=== PATIENT | female | born 1960 | race Asian ===

== ENCOUNTER 2017-07-20 14:12 | Outpatient (CLI) | payer OTHER ==
--- NOTE | 2017-07-20 18:19 | Mammography Report ---
DIGITAL DIAGNOSTIC BILATERAL MAMMOGRAM: 07/20/2017 CLINICAL INDICATION: Lateral left breast pain. COMPARISON: 05/08/2016, 04/27/2015, 04/14/2014, 04/15/2013, 09/02/2012, 2011, 04/22/2012, 04/03/2011, 02/28/2011, 03/12/2010. TECHNIQUE: Bilateral CC, laterally exaggerated CC, MLO views, left true lateral view. The patient described the pain as diffuse throughout the lateral half of the left breast, so no markers were placed. FINDINGS: The breasts again demonstrate heterogeneously dense fibroglandular parenchyma bilaterally. Coarse and punctate, typically benign calcifications are present. Biopsy markers are stable bilaterally. No suspicious masses, clustered microcalcifications, or regions of architectural distortion are identified. Specifically, no mammographic abnormality is appreciated in the outer left breast, in the region of pain described by the patient. IMPRESSION: BENIGN FINDINGS. RECOMMENDATION: Routine annual screening unless otherwise clinically indicated. BIRADS CATEGORY 2 - BENIGN FINDINGS. STANDARD QUALIFYING STATEMENTS 1. This examination was reviewed with the aid of Computed Aided Detection (CAD). 2. A negative x-ray report should not delay biopsy if a dominant or clinically suspicious mass is present. More than 5% of cancers are not identified by x-ray. 3. Dense breasts may obscure an underlying neoplasm. TD: 07/20/2017 19:18 LATOSHA
== END 2017-07-20 14:13 | disposition home or self-care (01) ==
LOC: DI 14:12
PROVIDERS: ATTEND Physician Assistant Medical
DX: N64.4 Mastodynia (principal)
CPT/HCPCS: 77066

== ENCOUNTER 2018-04-23 09:00 | Outpatient (CLI) | payer OTHER ==
[2018-04-23] MEDS ORDERED: GADOBUTROL 7.5 MMOL/7.5 ML VIAL ONE (09:42)
[2018-04-23 09:47] LABS: CALCIUM 9.3 mg/dL (8.5-10.3); CREATININE 0.6 mg/dL (0.4-1.0)
[2018-04-23] MEDS ORDERED: GADOBUTROL 7.5 MMOL/7.5 ML VIAL IVP ONE ×2 (11:19)
--- NOTE | 2018-04-23 12:22 | MRI Report ---
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 Please assess in follow-up. TECHNIQUE: 1. T1 sagittal and coronal fat saturated T2 2. Axial T1 MP RAGE, FLAIR, T2* and DWI. 3. Thin slice, T1 and T2 coronal (sella). 4. 6.5 cc of IV Gadavist. Dynamic pituitary imaging was performed in the coronal plane. In addition, thin slice, static, postcontrast, T1 sagittal and coronal sequences were obtained through the sella. A routine T1 MP RAGE axial sequence was performed through the brain. COMPARISON: 03/01/2016. FINDINGS: Pituitary/sella: The sella is not abnormally enlarged. There is a normal T1 hyperintense neurohypophysis in the posterior aspect of the sella. The pituitary gland has a normal size and configuration. It measures up to about 5.75 mm in maximal craniocaudad dimension, essentially unchanged. Again demonstrated is a well-defined, ovoid, T2 hyperintense focus in the posterior aspect of the adenohypophysis, centrally and paracentrally to the right. On the T2 coronal sequence from today's examination, this lesion appears to measure about 4.5 mm maximal transverse by about 2.5 mm maximal cc, compared to about 5 x 3 mm on the previous examination. There is no enhancement on early phases of dynamic sequence. However, the central area of nonenhancement appears smaller on the static postcontrast sequences suggesting that there probably is mild peripheral-type enhancement. On the postcontrast static T1 coronal sequence, the area of nonenhancement measures about 3 mm maximal transverse by about 1.8 mm maximal craniocaudad. This is unchanged when compared to the previous study 03/01/2016. There is minimal upward convexity of the contour of the pituitary at the level of the small cystic-appearing lesion. The infundibulum actually appears displaced slightly to the right, unchanged. No suprasellar mass is demonstrated. The optic chiasm remains normal and noncompressed. The cavernous sinuses and other parasellar structures appear normal. 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 There is magnetic susceptibility artifact in the cerebellar vermis from craniectomy, unchanged. Imaging of the posterior fossa is otherwise unremarkable. The fourth ventricle remains normal in size. The third and lateral ventricles are normal in size. A few minor T2 hyperintensities are again demonstrated in the frontal white matter. Signal intensity of cortex and white matter is otherwise unremarkable. There appear to be flow voids for the main intracranial arteries. No abnormal diffusion restriction is demonstrated. No evidence of acute or chronic hemorrhage on T2* GRE sequence. No enhancing intracranial space-occupying mass lesion is demonstrated. No pathologic meningeal or cranial nerve enhancement is identified. There appears to be normal intravascular contrast enhancement in the dural venous sinuses and deep venous structures. Very limited evaluation of the orbits reveals no gross pathology. There is mild mucosal thickening scattered throughout the ethmoid air cells. The paranasal sinuses are otherwise clear. No mastoid or middle ear effusion. IMPRESSION: 1. Again demonstrated is a small T2 hyperintense minimally enhancing lesion in the posterior aspect of the adenohypophysis, unchanged. No interval growth when compared to previous examination of 03/01/2016. Differential diagnostic considerations are predominantly between benign intrapituitary cyst and a cystic microadenoma. 2. Imaging of the parasellar region is otherwise unremarkable. In particular, no suprasellar mass is demonstrated. The optic chiasm is normal and noncompressed. 3. Postsurgical changes are again demonstrated in the posterior fossa, stable. 4. A very mild amount of white matter disease is again identified in the supratentorial brain, similar to previous study February 2016. 5. No new intracranial pathology is identified.
--- NOTE | 2018-04-23 14:10 | MRI Report ---
Reason: PITUITARY CYST Procedure Date: 04/23/2018 Accession Number: [id number] / [id number] Procedure: MRI - Angio Brain W/O (MRA) CPT Code: FULL RESULT: EXAM MRA BRAIN EXAM DATE: 04/23/2018 10:01 AM. CLINICAL HISTORY: PITUITARY CYST. COMPARISON: Accompanying MRI brain, prior MR angiogram brain 03/01/2016. TECHNIQUE: Multiplanar, multisequence MRA sequences of the brain were performed. Other: None. Post-processing: Multiplanar 3D MIP reconstructions. IV Contrast: None. Findings: Relevant images are indicated (image number, series number). Left ICA: Widely patent including MCA, TERRA. Right ICA: Widely patent including MCA, TERRA. Posterior circulation: Widely patent, origin right MANAGER EQUIPMENT. Small left PCOM. Impressions: 1. Patent major arteries of the brain, with normal anatomical variability as described. No aneurysm, dissection, stenosis, AVM. RADIA
== END 2018-04-23 09:01 | disposition home or self-care (01) ==
LOC: LAB 09:00 → DI 09:01
PROVIDERS: ATTEND Physician Assistant Medical
DX: E23.6 Other disorders of pituitary gland (principal); I10 Essential (primary) hypertension; R90.82 White matter disease, unspecified
CPT/HCPCS: 36415; 70544; 70553; 80048; A9585

== ENCOUNTER 2018-05-18 07:41 | Outpatient (CLI) | payer OTHER ==
[2018-05-18 14:28] LABS: BASOPHILS # (AUTO) 0.1 10^3/uL (0.0-0.1); BASOPHILS % (AUTO) 0.9 %; EOSINOPHILS # (AUTO) 0.1 10^3/uL (0.0-0.7); EOSINOPHILS % (AUTO) 1.7 %; HGB - HEMOGLOBIN 13.8 g/dL (12.0-16.0); LYMPHOCYTES # (AUTO) 2.3 10^3/uL (1.5-3.5); LYMPHOCYTES % (AUTO) 38.1 %; MEAN CORPUSCULAR VOLUME 91.2 fL (81.0-99.0); MEAN PLATELET VOLUME 8.4 fL (7.9-10.8); MONOCYTES # (AUTO) 0.4 10^3/uL (0.0-1.0); MONOCYTES % (AUTO) 6.3 %; NEUTROPHILS # (AUTO) 3.1 10^3/uL (1.5-6.6); PLT - PLATELET COUNT 261 10^3/uL (130-450); RED BLOOD COUNT 4.46 10^6/uL (4.20-5.40); RED CELL DISTRIBUTION WIDTH 13.1 % (12.0-15.0); WHITE BLOOD COUNT 5.9 x10^3/uL (4.8-10.8)
[2018-05-18 15:06] LABS: ALBUMIN 4.3 g/dL (3.2-5.5); ALBUMIN/GLOBULIN RATIO 1.5 (1.0-2.2); ALKALINE PHOSPHATASE 91 IU/L (42-121); ALT ALANINE AMINOTRANSFERASE 39 IU/L (10-60); AST ASPARTATE AMINOTRANSFERASE 26 IU/L (10-42); BILIRUBIN,TOTAL 0.8 mg/dL (0.2-1.0); BUN - BLOOD UREA NITROGEN 10 mg/dL (6-20); CALCIUM 9.2 mg/dL (8.5-10.3); CARBON DIOXIDE - CO2 28 mmol/L (21-32); CHLORIDE 104 mmol/L (101-111); CHOL/HDL RATIO 2.3 (<4.4); CHOLESTEROL 211 mg/dL; CREATININE 0.6 mg/dL (0.4-1.0); GFR - MDRD 103 (>89); GLUCOSE 84 mg/dL (70-100); HDL CHOLESTEROL 93 mg/dL; LDL CHOLESTEROL,CALCULATED 109 mg/dL; LDL/HDL RATIO 1.2 (<4.4); SODIUM 137 mmol/L (135-145); TOTAL PROTEIN 7.2 g/dL (6.7-8.2); VLDL CHOLESTEROL 9 mg/dL
== END 2018-05-18 07:42 | disposition home or self-care (01) ==
LOC: LAB.WCP 07:41
PROVIDERS: ATTEND Physician Assistant Medical
DX: Z00.00 Encounter for general adult medical examination without abnormal findings (principal)
CPT/HCPCS: 36415; 80053; 80061; 83721; 84443; 85025

== ENCOUNTER 2018-07-19 12:35 | Outpatient (CLI) | payer OTHER ==
--- NOTE | 2018-07-19 15:21 | Mammography Report ---
Reason: BREAST PAIN, LEFT Procedure Date: 07/19/2018 Accession Number: [id number] / [id number] Procedure: SUSIE - Diagnostic Dig Bilat CPT Code: FULL RESULT: EXAM: Diagnostic Dig Bilat DATE: 07/19/2018 1:23 PM CLINICAL HISTORY: Left breast pain with palpable abnormality. Diagnostic mammogram. TECHNIQUE: Bilateral CC and MLO views were obtained with left spot CC and spot MLO views also obtained with magnification. COMPARISON: 07/20/2017 through 04/14/2014. FINDINGS: The breasts demonstrate scattered fibroglandular densities bilaterally. Biopsy markers are identified in both breasts, stable. There are coarse typically benign calcifications. There is no mammographic finding that corresponds to the palpable marker placed on the left breast. Focused left breast ultrasound of the region of interest demonstrates normal breast tissue. No suspicious masses, architectural distortion or calcifications are identified in either breast. IMPRESSION: Benign findings RECOMMENDATION: Recommend routine annual Screening mammography unless otherwise clinically indicated. BIRADS CATEGORY 2: Benign findings STANDARD QUALIFYING STATEMENTS: 1. This examination was not reviewed with the aid of Computer-Aided Detection (CAD). 2. A negative or benign imaging report should not delay biopsy if clinically suspicious findings are present. Consider surgical consultation if warrented. More than 5% of cancers are not identified by imaging. 3. Dense breasts may obscure an underlying neoplasm. 4. This examination was reviewed with the aid of 3D imaging (tomography).
== END 2018-07-19 12:36 | disposition home or self-care (01) ==
LOC: DI 12:35
PROVIDERS: ATTEND Physician Assistant
DX: N64.4 Mastodynia (principal)
CPT/HCPCS: 76642; 77066

== ENCOUNTER 2018-08-17 09:44 | Outpatient (CLI) | payer OTHER ==
--- NOTE | 2018-08-17 15:11 | XRAY Report ---
Reason: PRODUCTIVE COUGH PURULRNT SPUTUM Procedure Date: 08/17/2018 Accession Number: [id number] / [id number] Procedure: WCP - Chest 2 View X-Ray CPT Code: 29838 FULL RESULT: EXAM: CHEST RADIOGRAPHY EXAM DATE: 08/17/2018 10:14 AM. CLINICAL HISTORY: Cough. COMPARISON: None. TECHNIQUE: 2 views. FINDINGS: Lungs/Pleura: No focal opacities evident. No pleural effusion. No pneumothorax. Normal volumes. Mediastinum: Heart and mediastinal contours are unremarkable. Other: None. IMPRESSION: No acute intrathoracic plain film abnormality. RADIA
== END 2018-08-17 09:45 | disposition home or self-care (01) ==
LOC: DI.WCP 09:44
PROVIDERS: ATTEND Physician Assistant
DX: R05 Cough (principal)
CPT/HCPCS: 71046

== ENCOUNTER 2018-12-24 12:32 | Emergency (ER) | payer OTHER ==
--- NOTE | 2018-12-24 14:15 | ED Physician Documentation ---
PD HPI HEADACHE - Stated complaint Stated Complaint: HEADACHE/HIGH BP - Chief complaint Chief Complaint: Neuro - History obtained from History obtained from: Patient - History of Present Illness Timing - onset: Other (Coming and going MENDES x2 weeks. Had Aneurysm with clip 2016. BP has been high and BP meds were increased (verapamil was doubled). C/O L hand tingling 3rd-5th digits. Currently no headache.) Review of Systems Ten Systems: 10 systems reviewed and negative Constitutional: denies: Fever, Chills Ears: denies: Loss of hearing, Ear pain Nose: denies: Rhinorrhea / runny nose, Congestion Throat: denies: Sore throat Cardiac: denies: Chest pain / pressure, Palpitations Respiratory: denies: Dyspnea, Cough PD PAST MEDICAL HISTORY - Past Medical History Cardiovascular: Hypertension Respiratory: Asthma GI: None WATER TENDER: None : None HEENT: None, Glaucoma Psych: None Musculoskeletal: None Derm: None - Past Surgical History Past Surgical History: Yes - Present Medications Home Medications: Ambulatory Orders Medication Instructions Recorded Confirmed Verapamil [Calan] 90 mg PO DAILY 02/12/13 02/12/13 RX: Hydrochlorothiazide 12.5 mg PO DAILY #30 tablet 12/24/18 - Allergies Allergies/Adverse Reactions: Allergies Allergy/AdvReac Type Severity Reaction Status Date / Time No Known Drug Allergies Allergy Verified 02/12/13 19:31 - Social History Does the pt smoke?: No Smoking Status: Never smoker Does the pt drink ETOH?: No - Family History Family history: reports: Non contributory - Immunizations Immunizations are current?: Yes - POLST Patient has POLST: No POLST Status: Full Code PD ED PE NORMAL - Vitals Vital signs reviewed: Yes - General General: Alert and oriented X 3, No acute distress - HEENT HEENT: PERRL, EOMI, Pharynx benign - Neck Neck: Supple, no meningeal sign, No bony TTP - Cardiac Cardiac: RRR, No murmur - Respiratory Respiratory: No respiratory distress, Clear bilaterally - Abdomen Abdomen: Non tender - Back Back: No CVA TTP, No spinal TTP - Derm Derm: Normal color, Warm and dry - Extremities Extremities: No deformity, No tenderness to palpate, Normal ROM s pain, No edema, No calf tenderness / cord - Neuro Neuro: Alert and oriented X 3, 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, No motor deficit, No sensory deficit, Normal speech Eye Opening: Spontaneous Motor: Obeys Commands Verbal: Oriented GCS Score: 15 - Psych Psych: Normal mood, Normal affect Results - Vitals Vitals: Vital Signs - 24 hr 12/24/18 12/24/18 12/24/18 12:49 12:54 15:25 Temperature 36.6 C Heart Rate 64 60 66 Respiratory 16 18 15 Rate Blood Pressure 171/73 H 153/77 H 153/66 H O2 Saturation 99 99 100 12/24/18 17:13 Temperature 36.6 C Heart Rate 67 Respiratory 17 Rate Blood Pressure 156/66 H O2 Saturation 99 Oxygen O2 Source Room air - Labs Labs: Laboratory Tests 12/24/18 14:59 Sodium 140 Potassium 3.7 Chloride 104 Carbon Dioxide 27 Anion Gap 9.0 BUN 12 Creatinine 0.7 Estimated GFR (MDRD) 86 L Glucose 84 Calcium 9.2 - Rads (name of study) CTA head Radiology: EMP read contemporaneously (nad) PD MEDICAL DECISION MAKING - ED course ED course: 58-year-old woman with uncontrolled hypertension and history of aneurysm with on and off headaches although no headaches now and declines medication for the headaches. She is mostly worried about the recurrence of an aneurysm which Is ruled out on CT angiography. We will start a low-dose of hydrochlorothiazide pending follow-up. Departure - Departure Disposition: 01 Home, Self Care Clinical Impression: Headache, Hypertension Condition: Good Record reviewed to determine appropriate education?: Yes Health Concerns: Headache with history of aneurysm repair, Plan of Treatment: CTA was done with no evidence of abnormality or recurrent aneurysm. Care Goals: Decreased blood pressure and headache, aneurysm now ruled out. Assessment: as above Instructions: ED Cephalgia Unspecified Prescriptions: RX: Hydrochlorothiazide 12.5 mg PO DAILY #30 tablet Comments: Call your doctor to arrange a follow-up appointment, make the next available appointment. In the interim, return anytime if worse or if new symptoms develop. Discharge Date/Time: 12/24/18 17:14
[2018-12-24] MEDS ORDERED: IOVERSOL 320 100 ML VIAL IVP ONE ×2 (14:33→15:45)
[2018-12-24 15:28] LABS: CALCIUM 9.2 mg/dL (8.5-10.3); CREATININE 0.7 mg/dL (0.4-1.0)
--- NOTE | 2018-12-24 16:14 | CT Report ---
Reason: Headache, known H/O clipped aneurysms Procedure Date: 12/24/2018 Accession Number: [id number] / [id number] Procedure: CT - ANGIO HEAD W CPT Code: FULL RESULT: EXAM: CT ANGIOGRAM HEAD. CT SCAN OF THE HEAD WITHOUT AND WITH CONTRAST. EXAM DATE: 12/24/2018 03:43 PM CLINICAL HISTORY: Headache, known history of clipped aneurysms. COMPARISON: BRAIN ANGIO W/O 04/23/2018 10:01 AM. BRAIN W/WO 04/23/2018 9:39 AM. HEAD ANGIO 02/10/2013 5:30 PM. TECHNIQUE: - CT Scan Head: Using a multidetector scanner, axial images were acquired from the foramen magnum to the skull vertex prior to and following contrast administration. - CT Angiogram: Using a multidetector scanner, high-resolution axial images were acquired from the skull base through vertex following rapid infusion of intravenous contrast. Reformats: Multiplanar MIP reformats were reconstructed. Nascet criteria used for stenosis measurement. IV Contrast: 80 cc Optiray 320. In accordance with CT protocol optimization, one or more of the following dose reduction techniques were utilized for this exam: automated exposure control, adjustment of mA and/or KV based on patient size, or use of iterative reconstructive technique. FINDINGS: NON-CONTRAST HEAD: Parenchyma: No intraparenchymal hemorrhage. No evidence of mass, midline shift, or CT findings of infarction. Ritchie-white differentiation is distinct. Postoperative change from midline suboccipital craniotomy is noted. Extraaxial Spaces: Normal for age. No subdural or epidural collections identified. Ventricles: Normal in size and position. Sinuses and orbits: Imaged paranasal sinuses, orbits, and mastoids show no significant abnormality. Note is made of bilateral lens removal. Bones: No evidence of fracture or calvarial defect. Other: None. POST-CONTRAST HEAD: No abnormal enhancement. CT ANGIOGRAM HEAD: RIGHT: Internal Carotid artery: No evidence of dissection. No evidence of aneurysm along the intracranial ICA. Anterior Cerebral Artery: Patent without significant stenosis, aneurysm, or vascular malformation. Middle Cerebral Artery: Patent without significant stenosis, aneurysm, or vascular malformation. Posterior Cerebral Artery: Patent without significant stenosis, aneurysm, or vascular malformation. origin is noted as continuation of the P-comm. The P1 segment off the basilar tip is not visualized and presumed aplastic. Posterior Communicating Artery: Patent. No aneurysm. Vertebral Artery: Patent without significant stenosis. No evidence of dissection. Small caliber right PICA is seen arising from the proximal V4 segment. The origin is not well identified. LEFT: Internal Carotid artery: No evidence of dissection. No evidence of aneurysm along the intracranial ICA. Anterior Cerebral Artery: Patent without significant stenosis, aneurysm, or vascular malformation. Middle Cerebral Artery: Patent without significant stenosis, aneurysm, or vascular malformation. Posterior Cerebral Artery: Patent without significant stenosis, aneurysm, or vascular malformation. Posterior Communicating Artery: Patent. No aneurysm. Vertebral Artery: Patent without significant stenosis. No evidence of dissection. The left PICA is dominant arising from the proximal V4 segment. CENTRAL: Anterior Communicating Artery: Patent. No aneurysm. Basilar Artery: Patent without significant stenosis. No aneurysm. Bilateral AICA are noted, with the right side dominant. Bilateral superior cerebellar arteries are patent and unremarkable. The basilar artery terminates as the left DIAGNOSTIC TECHNOLOGIST. DURAL VENOUS SINUSES AND MAJOR CENTRAL VEINS: Patent. The right transverse sinus and jugular bulb are dominant. IMPRESSION: CT Head: 1. No acute intracranial abnormality. Specifically, no evidence of acute infarct, hemorrhage, or mass lesion. No abnormal enhancement. 2. Postoperative change from midline suboccipital craniotomy once again noted. CTA Head: 1. Normal CTA of the head. No significant vascular stenosis, dissection, or aneurysm. 2. Note is made of origin of the right DIAGNOSTIC TECHNOLOGIST as continuation of the P-comm. 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 RADIA
[2018-12-24 17:15] VITALS: BP 156/66
== END 2018-12-24 17:14 | disposition home or self-care (01) ==
LOC: ED 12:32
DX: I10 Essential (primary) hypertension (principal); R51 Headache; Z86.79 Personal history of other diseases of the circulatory system
CPT/HCPCS: 36415; 70496; 80048; 99283; 99284; Q9967

== ENCOUNTER 2019-06-03 08:15 | Outpatient (CLI) | payer OTHER ==
[2019-06-03 12:12] LABS: BASOPHILS # (AUTO) 0.1 10^3/uL (0.0-0.1); BASOPHILS % (AUTO) 1.4 %; EOSINOPHILS # (AUTO) 0.1 10^3/uL (0.0-0.7); EOSINOPHILS % (AUTO) 1.2 %; HGB - HEMOGLOBIN 13.9 g/dL (12.0-16.0); LYMPHOCYTES # (AUTO) 2.5 10^3/uL (1.5-3.5); MEAN CORPUSCULAR HEMOGLOBIN 30.5 pg (27.0-31.0); MEAN CORPUSCULAR VOLUME 92.5 fL (81.0-99.0); MONOCYTES # (AUTO) 0.5 10^3/uL (0.0-1.0); NEUTROPHILS # (AUTO) 2.5 10^3/uL (1.5-6.6); NEUTROPHILS % (AUTO) 45.2 %; PLT - PLATELET COUNT 258 10^3/uL (130-450); RED BLOOD COUNT 4.55 10^6/uL (4.20-5.40); RED CELL DISTRIBUTION WIDTH 13.1 % (12.0-15.0); WHITE BLOOD COUNT 5.6 x10^3/uL (4.8-10.8)
[2019-06-03 16:01] LABS: ALBUMIN 4.1 g/dL (3.2-5.5); ALBUMIN/GLOBULIN RATIO 1.4 (1.0-2.2); ALKALINE PHOSPHATASE 62 IU/L (42-121); ALT ALANINE AMINOTRANSFERASE 19 IU/L (10-60); AST ASPARTATE AMINOTRANSFERASE 24 IU/L (10-42); BILIRUBIN,TOTAL 0.7 mg/dL (0.2-1.0); BUN - BLOOD UREA NITROGEN 16 mg/dL (6-20); CALCIUM 9.7 mg/dL (8.5-10.3); CARBON DIOXIDE - CO2 30 mmol/L (21-32); CHLORIDE 99 mmol/L (101-111); CHOL/HDL RATIO 2.2 (<4.4); CHOLESTEROL 213 mg/dL; CREATININE 0.7 mg/dL (0.4-1.0); GFR - MDRD 86 (>89); GLUCOSE 90 mg/dL (70-100); HDL CHOLESTEROL 95 mg/dL; LDL CHOLESTEROL,CALCULATED 101 mg/dL; LDL/HDL RATIO 1.1 (<4.4); SODIUM 138 mmol/L (135-145); TOTAL PROTEIN 7.1 g/dL (6.7-8.2); VLDL CHOLESTEROL 17 mg/dL
== END 2019-06-03 23:59 | disposition home or self-care (01) ==
LOC: LAB.WCP 08:15
PROVIDERS: ATTEND Physician Assistant Medical
DX: Z00.00 Encounter for general adult medical examination without abnormal findings (principal)
CPT/HCPCS: 36415; 80053; 80061; 83721; 84443; 85025

== ENCOUNTER 2019-07-29 14:59 | Outpatient (CLI) | payer OTHER ==
--- NOTE | 2019-08-01 12:52 | Mammography Report ---
Reason: ROUTINE MAMMO Procedure Date: 07/29/2019 Accession Number: [id number] / [id number] Procedure: SUSIE - Screening Mammo w/Doc CPT Code: Final Report FULL RESULT: EXAM: Screening Mammo w/Doc DATE: 07/29/2019 3:31 PM CLINICAL HISTORY: Routine screening TECHNIQUE: (B) - Bilateral CC and MLO views were obtained. COMPARISON: 07/19/2018, 07/20/2017, 05/08/2016, 04/27/2015, 04/14/2014, 04/15/2013, 09/24/2012 and 09/02/2012 PARENCHYMAL PATTERN: (D) - The breasts demonstrate heterogeneously dense fibroglandular parenchyma bilaterally. FINDINGS: No significant interval change right breast. There are no suspicious masses, calcifications, or areas of distortion. There is a 7 mm nodule in the 10:00 position left breast 5 to 6 cm from the nipple which may have been obscured by dense breasts tissue on prior mammograms. Suggest further evaluation by left breast ultrasound. No suspicious calcifications or areas of distortion left breast. IMPRESSION: Incomplete examination. BI-RADS category 0. Needs left breast ultrasound. Negative right breast. RECOMMENDATION: (ADDUS) - Targeted ultrasound recommended. Left breast BI-RADS CATEGORY: (0) - Incomplete Examination - need additional evaluation. STANDARD QUALIFYING STATEMENTS: 1. This examination was not reviewed with the aid of Computer-Aided Detection (CAD). 2. A negative or benign imaging report should not preclude biopsy if clinically suspicious findings are present. 3. Dense breasts may obscure an underlying neoplasm. 4. This examination was reviewed with the aid of 3D breast imaging (tomosynthesis).
== END 2019-07-29 15:00 | disposition home or self-care (01) ==
LOC: DI 14:59
DX: Z12.31 Encounter for screening mammogram for malignant neoplasm of breast (principal)
CPT/HCPCS: 77063; 77067

== ENCOUNTER 2019-08-16 08:07 | Outpatient (CLI) | payer OTHER ==
--- NOTE | 2019-08-16 16:40 | Ultrasound Report ---
Reason: ABNORMAL MAMMOGRAM Procedure Date: 08/16/2019 Accession Number: [id number] / [id number] Procedure: US - Breast Unilateral Limited CPT Code: Final Report FULL RESULT: EXAM: Breast Unilateral Limited DATE: 08/16/2019 8:45 AM CLINICAL HISTORY: ABNORMAL MAMMOGRAM COMPARISON: Diagnostic mammogram and ultrasound of the left breast 07/19/2018. Screening mammogram 07/29/2019. TECHNIQUE: Targeted ultrasound was performed of the left breast in the area of clinical concern at 11 o'clock and 4 cm distance from the nipple. Color Doppler was employed as appropriate. FINDINGS: At the 11:00 position 4 cm from the nipple is a wider than tall relatively well-circumscribed hypoechoic nodule which measures 0.6 x 0.3 x 0.7 cm and does not demonstrate vascularity by limited color Doppler. There is suggestion of increased through transmission suggestive of a cyst, typically benign sonographic features. IMPRESSION: Benign findings RECOMMENDATION: Recommend routine annual Screening mammography unless otherwise clinically indicated. BIRADS CATEGORY 2: Benign findings RADIA
== END 2019-08-16 08:08 | disposition home or self-care (01) ==
LOC: DI 08:07
PROVIDERS: ATTEND Physician Assistant Medical
DX: R92.8 Other abnormal and inconclusive findings on diagnostic imaging of breast (principal)
CPT/HCPCS: 76642

== ENCOUNTER 2020-06-15 10:34 | Outpatient (CLI) | payer OTHER ==
--- NOTE | 2020-06-15 10:55 | XRAY Report ---
PROCEDURE: Chest 2 View X-Ray INDICATIONS: Hemoptysis TECHNIQUE: 2 view(s) of the chest. COMPARISON: 08/17/2018 chest radiograph FINDINGS: Surgical changes and devices: None. Lungs and pleura: No pleural effusions or pneumothorax. Lungs are clear. Mediastinum: Mediastinal contours are normal. Heart size is normal. Bones and chest wall: No suspicious bony abnormalities. Soft tissues appear unremarkable. IMPRESSION: No acute cardiopulmonary process demonstrated radiographically. Reviewed by: Sergio Cruz MD on 06/15/2020 9:54 AM [facility] Approved by: Sergio Cruz MD on 06/15/2020 9:54 AM [facility] Station ID: [id number]
== END 2020-06-15 23:59 | disposition home or self-care (01) ==
LOC: DI.WCP 10:34
PROVIDERS: ATTEND Physician Assistant Medical
DX: R04.2 Hemoptysis (principal)

== ENCOUNTER 2020-06-20 18:04 | Emergency (ER) | payer OTHER ==
[2020-06-20 18:51] LABS: BILIRUBIN,URINE NEGATIVE (NEGATIVE); CLARITY,URINE CLEAR (CLEAR); GLUCOSE, URINE (UA) NEGATIVE (NEGATIVE); KETONES,URINE (UA) NEGATIVE (NEGATIVE); LEUKOCYTE ESTERASE, URINE NEGATIVE (NEGATIVE); NITRITE,URINE NEGATIVE (NEGATIVE); OCCULT BLOOD,URINE NEGATIVE (NEGATIVE); PH,URINE 6.5 PH (5.0-7.5); PROTEIN,URINE NEGATIVE (NEGATIVE); UROBILINOGEN,URINE 0.2 (NORMAL) E.U./dL (NORMAL)
[2020-06-20 18:52] LABS: HCG UR QUAL NEGATIVE
--- NOTE | 2020-06-20 19:18 | ED Physician Documentation ---
PD HPI ABD PAIN - Stated complaint Stated Complaint: RUQ PX - Chief complaint Chief Complaint: Abd Pain - History obtained from History obtained from: Patient - History of Present Illness Timing - onset: How many weeks ago (2) Timing - duration: Weeks (2) Timing - details: Gradual onset, Intermittant Quality: Cramping, Aching, Pain Location: RUQ, Epigastric Radiation: Left shoulder, Upper back Improved by: No: Eating Worsened by: No: Eating (she says seems to be more random pains and not associated with eating per se.), Breathing, Palpation Associated symptoms: Nausea. No: Fever, Vomiting, Diarrhea, Constipation, Melena Similar symptoms before: Has not had sx before Recently seen: Not recently seen Review of Systems Constitutional: denies: Fever Nose: denies: Rhinorrhea / runny nose, Congestion Throat: denies: Sore throat Cardiac: denies: Chest pain / pressure Respiratory: denies: Cough GI: reports: Abdominal Pain, Nausea. denies: Abdominal Swelling, Vomiting, Constipation, Diarrhea, Bloody / black stool : denies: Dysuria, Frequency Skin: denies: Rash, Lesions Musculoskeletal: denies: Extremity swelling Neurologic: denies: Near syncope PD PAST MEDICAL HISTORY - Past Medical History Cardiovascular: Hypertension Respiratory: Asthma Neuro: Headaches GI: None [employer]: None : None HEENT: None, Glaucoma Psych: None Musculoskeletal: None Derm: None - Past Surgical History Past Surgical History: Yes - Present Medications Home Medications: Ambulatory Orders Medication Instructions Recorded Confirmed Hydrochlorothiazide 12.5 mg PO DAILY #30 tablet 12/24/18 Famotidine [Pepcid] 20 mg PO DAILY #30 tablet 06/20/20 Lidocaine Viscous 2% [Xylocaine 5 ml PO Q4H PRN #100 ml 06/20/20 Viscous 2%] Losartan [Cozaar] 50 mg PO DAILY 06/20/20 06/20/20 - Allergies Allergies/Adverse Reactions: Allergies Allergy/AdvReac Type Severity Reaction Status Date / Time dexamethasone [From TobraDex] Allergy Itching Verified 06/20/20 18:12 tobramycin [From TobraDex] Allergy Itching Verified 06/20/20 18:12 - Social History Does the pt smoke?: No Smoking Status: Never smoker Does the pt drink ETOH?: No - Immunizations Immunizations are current?: Yes - POLST Patient has POLST: No POLST Status: Full Code PD ED PE NORMAL - Vitals Vital signs reviewed: Yes - General General: Alert and oriented X 3, No acute distress, Well developed/nourished - Neck Neck: Supple, no meningeal sign, No adenopathy - Cardiac Cardiac: RRR, No murmur - Respiratory Respiratory: Clear bilaterally - Abdomen Abdomen: Normal bowel sounds, Soft, Non distended, No organomegaly, Other (tender moderately at RUQ with some local guarding. No percussion nor rebound. No referred tender from lower abd. Not distended. ) - Back Back: No CVA TTP - Derm Derm: Normal color, Warm and dry, No rash - Extremities Extremities: No edema, No calf tenderness / cord Results - Vitals Vitals: Vital Signs - 24 hr 06/20/20 06/20/20 06/20/20 18:12 20:50 22:32 Temperature 36.4 C L 36.7 C Heart Rate 71 56 L 67 Respiratory 18 16 18 Rate Blood Pressure 138/65 H 154/72 H 169/78 H O2 Saturation 100 96 100 Oxygen O2 Source Room air - Labs Labs: Laboratory Tests 06/20/20 06/20/20 06/20/20 18:30 19:31 19:31 WBC 6.9 RBC 4.62 Hgb 13.9 Hct 41.8 MCV 90.5 MCH 30.1 MCHC 33.3 RDW 12.9 Plt Count 262 MPV 9.2 Neut # (Auto) 3.2 Lymph # (Auto) 3.1 [place] # (Auto) 0.5 Eos # (Auto) 0.1 Baso # (Auto) 0.1 Absolute Nucleated RBC 0.00 Nucleated RBC % 0.0 Sodium 137 Potassium 3.2 L Chloride 101 Carbon Dioxide 27 Anion Gap 9.0 BUN 13 Creatinine 0.6 Estimated GFR (MDRD) 102 Glucose 93 Calcium 9.6 Total Bilirubin 0.3 AST 24 ALT 17 Alkaline Phosphatase 64 Total Protein 7.4 Albumin 4.3 Globulin 3.1 Albumin/Globulin Ratio 1.4 Lipase 34 Urine Color YELLOW Urine Clarity CLEAR Urine pH 6.5 Ur Specific [place] 1.010 Urine Protein NEGATIVE Urine Glucose (UA) NEGATIVE Urine Ketones NEGATIVE Urine Occult Blood NEGATIVE Urine Nitrite NEGATIVE Urine Bilirubin NEGATIVE Urine Urobilinogen 0.2 (NORMAL) Ur Leukocyte Esterase NEGATIVE Ur Microscopic Review NOT INDICATED Urine Culture Comments NOT INDICATED Urine HCG, Qual NEGATIVE - Rads (name of study) URQ US Radiology: Prelim report reviewed (no acute process seen), See rad report abd CT Radiology: Prelim report reviewed (local area of inflammation near outlet of stomach c/w gastritis. Else normal. ), See rad report PD MEDICAL DECISION MAKING - ED course Complexity details: reviewed results (US normal. toe closing machine tender RUQ. Will get CT. Labs are normal. ), re-evaluated patient (CT abd showing gastritis. Will treat that way. If persistent symptoms, consider testing for HPylori and possible EGD to eval for other lesions in gastrum. ), considered differential (area of pain and pattern suggests gallbladder colic, will start with labs and US. Consider pancreatic process, gastritis, diverticulitis, or other process as well. ), d/w patient Departure - Departure Disposition: 01 Home, Self Care Clinical Impression: RUQ abdominal pain Acute gastritis without bleeding Qualifiers: Gastritis type: unspecified gastritis Qualified Code(s): K29.00 - Acute gastritis without bleeding Condition: Stable Record reviewed to determine appropriate education?: Yes Instructions: Abdominal Pain, ED Gastritis Follow-Up: Carey Hopkins PA-C [Primary Care Provider] - Prescriptions: Famotidine [Pepcid] 20 mg PO DAILY #30 tablet Lidocaine Viscous 2% [Xylocaine Viscous 2%] 5 ml PO Q4H PRN #100 ml PRN Reason: Pain Comments: Your pancreas liver and gallbladder appear normal and testing. Your CT scan showed some inflammation at part of the stomach so your pain appears to be from gastritis. No other abnormality at this time. We will treat this with acid reducing medicine of famotidine twice daily for several days and then once a day after that for a month. Also use antacid such as Maalox or Mylanta 3-4 times a day, particularly a bit after meals and before bedtime. You can add lidocaine to this if needed for abdominal discomfort. You can also use Tylenol every 4-6 hours if needed for pain. Do not use NSAIDs such as ibuprofen or naproxen or aspirin. These could possibly further irritate your stomach. Follow-up with your primary care if not fully improved over the next week or so. If persistent symptoms, further testing could include a stool test to look for an infection of the stomach lining or even potentially a endoscopy to further look at the stomach. However these are not necessarily needed if you improve readily. Discharge Date/Time: 06/20/20 22:32
[2020-06-20] MEDS ORDERED: KETOROLAC 30 MG/ML VIAL IVP STA (19:36)
[2020-06-20 19:52] LABS: BASOPHILS # (AUTO) 0.1 10^3/uL (0.0-0.1); EOSINOPHILS # (AUTO) 0.1 10^3/uL (0.0-0.7); EOSINOPHILS % (AUTO) 1.7 %; HGB - HEMOGLOBIN 13.9 g/dL (12.0-16.0); LYMPHOCYTES # (AUTO) 3.1 10^3/uL (1.5-3.5); LYMPHOCYTES % (AUTO) 44.1 %; MEAN CORPUSCULAR HEMOGLOBIN 30.1 pg (27.0-31.0); MEAN CORPUSCULAR HGB CONC 33.3 g/dL (32.0-36.0); MEAN CORPUSCULAR VOLUME 90.5 fL (81.0-99.0); MEAN PLATELET VOLUME 9.2 fL (7.9-10.8); MONOCYTES # (AUTO) 0.5 10^3/uL (0.0-1.0); MONOCYTES % (AUTO) 7.1 %; NEUTROPHILS # (AUTO) 3.2 10^3/uL (1.5-6.6); PLT - PLATELET COUNT 262 10^3/uL (130-450); RED BLOOD COUNT 4.62 10^6/uL (4.20-5.40); RED CELL DISTRIBUTION WIDTH 12.9 % (12.0-15.0); WHITE BLOOD COUNT 6.9 x10^3/uL (4.8-10.8)
[2020-06-20 20:08] LABS: ALBUMIN 4.3 g/dL (3.2-5.5); ALBUMIN/GLOBULIN RATIO 1.4 (1.0-2.2); BILIRUBIN,TOTAL 0.3 mg/dL (0.2-1.0); CALCIUM 9.6 mg/dL (8.5-10.3); CREATININE 0.6 mg/dL (0.4-1.0); TOTAL PROTEIN 7.4 g/dL (6.7-8.2)
[2020-06-20] MEDS ORDERED: IOVERSOL 320 100 ML VIAL IVP ONE (21:03)
--- NOTE | 2020-06-20 21:07 | Ultrasound Report ---
PROCEDURE: Abdomen Limited INDICATIONS: RUQ abd pain intermittent for 2 wks TECHNIQUE: Real-time scanning was performed of the abdominal and retroperitoneal organs, with image documentatio n. COMPARISON: 02/04/2014. FINDINGS: Liver: Liver is normal in size and homogeneous in echotexture. Redemonstration of stable right hepa tic lobe hemangioma measuring approximately 1.0 x 0.7 x 0.9 cm. Gallbladder: Gallbladder is normal in appearance without gallstones, gallbladder wall thickening, or pericholecystic fluid. Negative sonographic Cha's sign. Biliary ducts: Intrahepatic bile ducts are non-dilated. Extrahepatic bile duct caliber measures 5 m m. Normal is 6-7 mm or less in diameter, or 10 mm or less post-cholecystectomy. Pancreas: Visualized portions of the pancreas are sonographically normal. Kidneys: Right kidney is normal in size and echotexture. Right kidney measures 9.5 cm long. No hydr onephrosis or nephrolithiasis. No solid masses. Iliacs: Proximal common iliac arteries are normal in caliber at less than 2.5 cm. IVC: Intrahepatic inferior vena cava is patent. Miscellaneous: No free abdominal fluid. IMPRESSION: 1. Abdomen without acute sonographic abnormalities. Specifically, normal sonographic appearance of th e gallbladder. 2. Stable 1.0 cm right hepatic lobe hemangioma. Findings were reported to Dr. Jones by the ramp jockey at 2030 hours. Reviewed by: Geraldo Talbert MD on 06/20/2020 9:05 PM [facility] Approved by: Geraldo Talbert MD on 06/20/2020 9:05 PM PST Station ID: [id number]
--- NOTE | 2020-06-20 21:50 | CT Report ---
PROCEDURE: Abdomen/Pelvis W INDICATIONS: RUQ abd pain for 2 weeks; normal U/S CONTRAST: IV CONTRAST: Optiray 320 ml: 100 PO CONTRAST: *NO PO CONTRAST TECHNIQUE: After the administration of intravenous contrast, 5 mm thick sections acquired from the diaphragms to the symphysis. 5 mm thick coronal and sagittal reformats were acquired. For radiation dose reducti on, the following was used: automated exposure control, adjustment of mA and/or kV according to leonie ent size. COMPARISON: Abdominal ultrasound 06/20/2020, 02/04/2014. FINDINGS: Image quality: Excellent. ABDOMEN: Lung bases: Minimal opacity in the lingula. No pleural effusion. Heart size is normal. Question of sm all hiatal hernia. Solid organs: Liver and spleen are normal in size. Small hypodensity with suspected peripheral nodul ar discontinuous enhancement in the subcapsular right lobe of liver, (3/). Gallbladder is unremark able. Biliary system is non dilated. Pancreas enhances normally. No adrenal nodules. Kidneys demo nstrate normal size and enhancement, without hydronephrosis. Peritoneum and bowel: Questionable thickening of the distal stomach wall with increased conspicuity o f the mucosa. No small bowel obstruction. Normal appendix, (6/15).. No free fluid or air. Nodes and vessels: No retroperitoneal or mesenteric adenopathy by size criteria. Aorta and inferior vena cava are normal in size. Prominent left gonadal veins. Miscellaneous: No ventral hernias. PELVIS: Genitourinary: Bladder wall thickness is normal. Uterus is unremarkable. Miscellaneous: No inguinal hernias or adenopathy. Bones: No suspicious bony lesions. No vertebral body compression fractures. IMPRESSION: Concern for mild inflammatory change at the distal stomach which could be due to gastritis. Normal appendix. Gallbladder is unremarkable. No free fluid. Reviewed by: Benjamin Merritt MD on 06/20/2020 9:49 PM [facility] Approved by: Benjamin Merritt MD on 06/20/2020 9:49 PM PST Station ID: [id number]
[2020-06-20] MEDS ORDERED: FAMOTIDINE 20 MG/2 ML VIAL IVP STA (22:11)
[2020-06-20] MEDS ORDERED: MAG HYDROX/AL HYDROX/SIMETH 30 ML UDC PO STA (22:11)
[2020-06-20] MEDS ORDERED: LIDOCAINE VISCOUS 2% 15 ML UDC MM STA (22:11)
[2020-06-20 22:34] VITALS: BP 169/78
== END 2020-06-20 22:32 | disposition home or self-care (01) ==
LOC: ED 18:04
DX: K29.00 Acute gastritis without bleeding (principal); I10 Essential (primary) hypertension
CPT/HCPCS: 36415; 74177; 76705; 80053; 81003; 81025; 83690; 85025; 96374; 96375; 99284; A9270; Q9967; 81001; 87086

== ENCOUNTER 2020-06-26 08:11 | Outpatient (CLI) | payer OTHER ==
[2020-06-26 13:07] LABS: BASOPHILS # (AUTO) 0.1 10^3/uL (0.0-0.1); BASOPHILS % (AUTO) 1.2 %; EOSINOPHILS # (AUTO) 0.1 10^3/uL (0.0-0.7); EOSINOPHILS % (AUTO) 1.5 %; HCT - HEMATOCRIT 42.1 % (37.0-47.0); LYMPHOCYTES # (AUTO) 1.9 10^3/uL (1.5-3.5); LYMPHOCYTES % (AUTO) 39.4 %; MEAN CORPUSCULAR HEMOGLOBIN 30.3 pg (27.0-31.0); MEAN CORPUSCULAR HGB CONC 33.3 g/dL (32.0-36.0); MEAN CORPUSCULAR VOLUME 91.1 fL (81.0-99.0); MEAN PLATELET VOLUME 9.8 fL (7.9-10.8); MONOCYTES # (AUTO) 0.3 10^3/uL (0.0-1.0); MONOCYTES % (AUTO) 6.8 %; NEUTROPHILS # (AUTO) 2.5 10^3/uL (1.5-6.6); NEUTROPHILS % (AUTO) 51.1 %; PLT - PLATELET COUNT 252 10^3/uL (130-450); RED BLOOD COUNT 4.62 10^6/uL (4.20-5.40); RED CELL DISTRIBUTION WIDTH 12.8 % (12.0-15.0); WHITE BLOOD COUNT 4.8 x10^3/uL (4.8-10.8)
[2020-06-26 14:05] LABS: ALBUMIN 4.5 g/dL (3.2-5.5); ALBUMIN/GLOBULIN RATIO 1.4 (1.0-2.2); ALKALINE PHOSPHATASE 67 IU/L (42-121); ALT ALANINE AMINOTRANSFERASE 18 IU/L (10-60); AST ASPARTATE AMINOTRANSFERASE 25 IU/L (10-42); BILIRUBIN,TOTAL 0.7 mg/dL (0.2-1.0); BUN - BLOOD UREA NITROGEN 9 mg/dL (6-20); CALCIUM 9.6 mg/dL (8.5-10.3); CARBON DIOXIDE - CO2 29 mmol/L (21-32); CHLORIDE 97 mmol/L (101-111); CHOL/HDL RATIO 2.5 (<4.4); CHOLESTEROL 216 mg/dL; CREATININE 0.5 mg/dL (0.4-1.0); GFR - MDRD 126 (>89); GLUCOSE 96 mg/dL (70-100); HDL CHOLESTEROL 87 mg/dL; LDL CHOLESTEROL,CALCULATED 116 mg/dL; LDL/HDL RATIO 1.3 (<4.4); POTASSIUM 3.8 mmol/L (3.5-5.0); SODIUM 136 mmol/L (135-145); TOTAL PROTEIN 7.7 g/dL (6.7-8.2); TRIGLYCERIDES 67 mg/dL; VLDL CHOLESTEROL 13 mg/dL
[2020-06-26 14:25] LABS: THYROID STIMULATING HORMONE 2.11 uIU/mL (0.34-5.60)
== END 2020-06-26 23:59 | disposition home or self-care (01) ==
LOC: LAB.WCP 08:11
PROVIDERS: ATTEND Physician Assistant Medical
DX: Z00.00 Encounter for general adult medical examination without abnormal findings (principal)
CPT/HCPCS: 36415; 80053; 80061; 83721; 84443; 85025

== ENCOUNTER 2020-08-17 08:17 | Outpatient (CLI) | payer OTHER ==
--- NOTE | 2020-08-17 16:43 | DEXA Report ---
PROCEDURE: Dexa Spine and/or Hip INDICATIONS: POSTMENOPAUSAL TECHNIQUE: Dual energy x-ray absorptiometry (DXA) was performed on a [employer] System. Regions measur ed are the AP Spine, femoral neck, and if needed forearm. COMPARISON: None. FINDINGS: Lumbar Spine: Bone Mineral Density 0.824 g/cm/cm,T score -3.0, osteoporosis Left Hip: Bone Mineral Density 0.700 g/cm/cm,T score -2.4, osteopenia Left Femoral Neck: Bone Mineral Density 0.646 g/cm/cm, T score -2.8, osteoporosis (T score greater or equal to -1.0: NORMAL) (T score from -1.1 to -2.4: OSTEOPENIA) (T score less than or equal to -2.5 to: OSTEOPOROSIS) Impression: Osteoporosis. Patients with diagnosis of osteoporosis or osteopenia should have regular bone mineral density assess ment. For those eligible for Medicare, routine testing is allowed once every 2 years. Testing frequ ency can be increased for patients who have rapidly progressing disease or for those who are receivin g medical therapy to restore bone mass. Reviewed by: Magalys Fine MD, PhD on 08/17/2020 4:42 PM PST Approved by: Magalys Fine MD, PhD on 08/17/2020 4:42 PM PST Station ID: [id number]
== END 2020-08-17 08:18 | disposition home or self-care (01) ==
LOC: DI 08:17
PROVIDERS: ATTEND Physician Assistant Medical
DX: M81.0 Age-related osteoporosis without current pathological fracture (principal); Z78.0 Asymptomatic menopausal state

== ENCOUNTER 2020-08-17 08:19 | Outpatient (CLI) | payer OTHER ==
--- NOTE | 2020-08-17 13:19 | Mammography Report ---
BILATERAL DIGITAL DIAGNOSTIC MAMMOGRAM 3D/2D: 08/17/2020 CLINICAL: Focal left breast pain. Comparison is made to exams dated: 07/29/2019 mammogram, 07/19/2018 mammogram, 07/20/2017 mammogram, mammogram, 04/27/2015 mammogram, and 04/14/2014 mammogram - [facility]. T here are scattered fibroglandular elements in both breasts. There is a round mass in the left breast at 11 o'clock middle depth. This is possibly increased in s ize. No other significant masses, calcifications, or other findings are seen in either breast. IMPRESSION: INCOMPLETE: NEEDS ADDITIONAL IMAGING EVALUATION The round mass in the left breast is indeterminate. An ultrasound is recommended. US will be perfor med and dictated separately. There is no abnormality seen in the left breast to correspond with the pain in the upper outer quadra nt, however, clinical correlation is recommended. This exam was interpreted at Station ID: [id number]. NOTE: For mammograms, a report in lay terms will be sent to the patient. Approximately 15% of breast malignancies will not be visualized mammographically. In the management of a palpable breast mass, a negative mammogram must not discourage biopsy of a clinically suspicious lesion. Electronically Signed By: Markus Bush acr/:08/17/2020 09:12:21 ACR BI-RADS Category 0: Incomplete 3340F PARENCHYMAL PATTERN: (A) - The breast(s) demonstrate(s) scattered fibroglandular densities. BI-RADS CATEGORY: (0) - 0 Ultrasound [id number] Immediate follow-up LATERALITY: (L)
--- NOTE | 2020-08-17 13:19 | Ultrasound Report ---
LIMITED ULTRASOUND OF LEFT BREAST AND AXILLA: 08/17/2020 CLINICAL: Focal left breast pain. Patient returns for short term follow-up of a probably benign mass in the left breast. Comparison is made to exams dated: 08/17/2020 mammogram, 08/16/2019 ultrasound, 07/29/2019 mammogram, mammogram, 07/19/2018 ultrasound, and 07/20/2017 mammogram - [facility]. Ultrasound of the left breast 11-12 o'clock, and axilla regions was performed. There is a 0.8 cm x 0.4 cm x 0.9 cm oval mass with a circumscribed margin in the left breast at 5 o'c lock posterior depth 4 cm from the nipple. This oval mass is hypoechoic with posterior acoustic enha ncement. This abnormality measures slightly larger, likely from variability in measurement and corre lates with mammography findings. IMPRESSION: PROBABLY BENIGN The 0.8 cm x 0.4 cm x 0.9 cm oval mass in the left breast is consistent with a fibroadenoma and is pr obably benign. A follow-up mammogram in 6 months is recommended. A follow-up left ultrasound in 6 months is recommended to demonstrate stability. This exam was interpreted at Station ID: [id number]. Electronically Signed By: Markus Bush acr/:08/17/2020 09:44:07 Ultrasound BI-RADS: 3 Probably benign BI-RADS CATEGORY: (3) - 3 Ultrasound [id number] 6 month follow-up LATERALITY: (L)
== END 2020-08-17 08:20 | disposition home or self-care (01) ==
LOC: DI 08:19
PROVIDERS: ATTEND Physician Assistant Medical
DX: N64.4 Mastodynia (principal); N63.23 Unspecified lump in the left breast, lower outer quadrant; M81.0 Age-related osteoporosis without current pathological fracture; Z78.0 Asymptomatic menopausal state

== ENCOUNTER 2020-10-02 08:46 | Outpatient (CLI) | payer OTHER ==
[2020-10-02] MEDS ORDERED: SINCALIDE 5 MCG VIAL ONE (09:39)
[2020-10-02] MEDS ORDERED: SODIUM CHLORIDE 0.9% IV ONE (11:00)
[2020-10-02] MEDS ORDERED: SINCALIDE IV ONE (11:00)
--- NOTE | 2020-10-02 12:14 | Nuclear Medicine Report ---
PROCEDURE: Hepatobiliary HIDA w/ Rx INDICATIONS: RUQ ABD PAIN RADIOPHARMACEUTICAL: 5.13 mCi Tc-99m mebrofenin i.v. and 1.1 ?g sincalide i.v. TECHNIQUE: Following intravenous administration of Tc-99m mebrofenin, sequential anterior abdominal images were obtained through 60 minutes. To evaluate the contractile response of the gallbladder in response to Cholecystokinin (CCK), 1.1 microgram sincalide (0.02 ?g/kg) was administered by slow intr avenous infusion approximately 60 minutes after the administration of the radiopharmaceutical. Seque ntial imaging was continued for 30 minutes after the start of CCK infusion. Gallbladder ejection fra ction was calculated. COMPARISON: None. FINDINGS: Biliary scan: There is normal tracer uptake and excretion by the liver. There is normal visualizati on of the intrahepatic ducts, common bile duct, and gallbladder. There is normal tracer transit into the duodenum. CCK stimulation: There is normal contractile response of the gallbladder to CCK infusion. The calcu lated gallbladder ejection fraction is 100%; normal values are above 35%. IMPRESSION: 1. Normal biliary imaging study. 2. Normal contractile response of gallbladder to CCK infusion.. Reviewed by: Sergio Cruz MD on 10/02/2020 12:13 PM PDT Approved by: Sergio Cruz MD on 10/02/2020 12:13 PM PDT Station ID: [id number]
== END 2020-10-02 08:47 | disposition home or self-care (01) ==
LOC: DI 08:46
PROVIDERS: ATTEND Physician Assistant Medical
DX: R10.11 Right upper quadrant pain (principal)
CPT/HCPCS: 78227; J7040

== ENCOUNTER 2021-02-22 10:59 | Outpatient (CLI) | payer OTHER ==
--- NOTE | 2021-02-25 15:42 | Ultrasound Report ---
LIMITED ULTRASOUND OF LEFT BREAST: 02/22/2021 CLINICAL: Short term follow up for the left breast. Comparison is made to exams dated: 08/17/2020 ultrasound and 08/16/2019 ultrasound - [facility]. Color flow ultrasound of the left breast 11 o'clock region was performed. Ritchie scale images of the real-time examination were reviewed. There is a 0.9 cm x 0.3 cm x 0.6 cm wider than tall oval mass with a circumscribed margin in the left breast at 11 o'clock middle depth 4 cm from the nipple. This oval mass is hypoechoic with posterior acoustic enhancement. This abnormality is not significantly changed and correlates with mammography findings. IMPRESSION: PROBABLY BENIGN The 0.9 cm x 0.3 cm x 0.6 cm wider than tall oval mass at the 11 o'clock position in the left breast resembles a complicated cyst or a fibroadenoma and is probably benign. A follow-up bilateral mammogram and a left ultrasound in 6 months is recommended to demonstrate stabi lity. Findings and recommendations were conveyed to the patient during today's evaluation. This exam was interpreted at Station ID: [id number]. Electronically Signed By: Geraldo Arnold M.D. aty/:02/22/2021 12:16:57 Ultrasound BI-RADS: 3 Probably benign BI-RADS CATEGORY: (3) - 3 Mammo and [place] [id number] 6 month follow-up LATERALITY: (B)
--- NOTE | 2021-02-25 15:42 | Mammography Report ---
UNILATERAL LEFT DIGITAL DIAGNOSTIC MAMMOGRAM 3D/2D: 02/22/2021 CLINICAL: Patient returns for a 6 month follow up of the left breast. Comparison is made to exams dated: 08/17/2020 ultrasound, 08/17/2020 mammogram, 08/16/2019 ultrasound, 07/29/2019 mammogram, 07/19/2018 mammogram, and 07/19/2018 ultrasound - [facility]. T here are scattered fibroglandular elements in left breast. There is a 0.8 cm oval focal asymmetry in the left breast at 11 o'clock middle depth. This is not si gnificantly changed. No other significant masses or calcifications are seen in the breast. IMPRESSION: INCOMPLETE: NEEDS ADDITIONAL IMAGING EVALUATION The 0.8 cm oval focal asymmetry in the left breast is indeterminate. An ultrasound is recommended f or further evaluation and is scheduled to immediately follow this examination. This exam was interpreted at Station ID: [id number]. NOTE: For mammograms, a report in lay terms will be sent to the patient. Approximately 15% of breast malignancies will not be visualized mammographically. In the management of a palpable breast mass, a negative mammogram must not discourage biopsy of a clinically suspicious lesion. Electronically Signed By: Geraldo Arnold M.D. aty/:02/22/2021 12:00:53 ACR BI-RADS Category 0: Incomplete 3340F PARENCHYMAL PATTERN: (A) - The breast(s) demonstrate(s) scattered fibroglandular densities. BI-RADS CATEGORY: (0) - 0 Ultrasound [id number] Immediate follow-up LATERALITY: (L)
== END 2021-02-22 11:00 | disposition home or self-care (01) ==
LOC: DI 10:59
PROVIDERS: ATTEND Physician Assistant Medical
DX: N64.4 Mastodynia (principal); N63.22 Unspecified lump in the left breast, upper inner quadrant

== ENCOUNTER 2021-07-27 10:12 | Outpatient (CLI) | payer OTHER ==
[2021-07-27 13:49] LABS: BASOPHILS # (AUTO) 0.1 10^3/uL (0.0-0.1); EOSINOPHILS # (AUTO) 0.1 10^3/uL (0.0-0.7); HCT - HEMATOCRIT 42.4 % (37.0-47.0); HGB - HEMOGLOBIN 14.1 g/dL (12.0-16.0); LYMPHOCYTES # (AUTO) 2.8 10^3/uL (1.5-3.5); LYMPHOCYTES % (AUTO) 46.8 %; MEAN CORPUSCULAR HEMOGLOBIN 30.1 pg (27.0-31.0); MEAN CORPUSCULAR HGB CONC 33.3 g/dL (32.0-36.0); MEAN CORPUSCULAR VOLUME 90.6 fL (81.0-99.0); MEAN PLATELET VOLUME 9.7 fL (7.9-10.8); MONOCYTES # (AUTO) 0.5 10^3/uL (0.0-1.0); MONOCYTES % (AUTO) 7.7 %; NEUTROPHILS # (AUTO) 2.6 10^3/uL (1.5-6.6); NEUTROPHILS % (AUTO) 43.3 %; PLT - PLATELET COUNT 267 10^3/uL (130-450); RED BLOOD COUNT 4.68 10^6/uL (4.20-5.40); RED CELL DISTRIBUTION WIDTH 12.9 % (12.0-15.0)
[2021-07-27 14:11] LABS: ALBUMIN 4.1 g/dL (3.2-5.5); ALBUMIN/GLOBULIN RATIO 1.4 (1.0-2.2); ALKALINE PHOSPHATASE 69 IU/L (42-121); ALT ALANINE AMINOTRANSFERASE 26 IU/L (10-60); AST ASPARTATE AMINOTRANSFERASE 24 IU/L (10-42); BILIRUBIN,TOTAL 0.6 mg/dL (0.2-1.0); BUN - BLOOD UREA NITROGEN 20 mg/dL (6-20); CALCIUM 9.5 mg/dL (8.5-10.3); CARBON DIOXIDE - CO2 29 mmol/L (21-32); CHLORIDE 105 mmol/L (101-111); CHOL/HDL RATIO 2.4 (<4.4); CHOLESTEROL 222 mg/dL; CREATININE 0.6 mg/dL (0.4-1.0); GFR - MDRD 102 (>89); GLUCOSE 94 mg/dL (70-100); HDL CHOLESTEROL 93 mg/dL; LDL CHOLESTEROL,CALCULATED 117 mg/dL; LDL/HDL RATIO 1.3 (<4.4); POTASSIUM 4.1 mmol/L (3.5-5.0); SODIUM 142 mmol/L (135-145); TRIGLYCERIDES 60 mg/dL; VLDL CHOLESTEROL 12 mg/dL
[2021-07-27 14:18] LABS: THYROID STIMULATING HORMONE 1.27 uIU/mL (0.34-5.60)
== END 2021-07-27 10:13 | disposition home or self-care (01) ==
LOC: LAB.N 10:12
PROVIDERS: ATTEND Physician Assistant Medical
DX: Z00.00 Encounter for general adult medical examination without abnormal findings (principal)
CPT/HCPCS: 36415; 80053; 80061; 83721; 84443; 85025

== ENCOUNTER 2023-04-09 12:48 | Emergency (ER) | payer OTHER ==
--- NOTE | 2023-04-09 13:18 | ED Physician Documentation ---
PD HPI HEADACHE - Stated complaint Stated Complaint: HEAD/JAW PX - Chief complaint Chief Complaint: Neuro - History obtained from History obtained from: Patient - Additional information Additional information: 62-year-old woman had aneurysmal clipping in 2006. Since then has had chronic intermittent headaches. Last night developed a gradual onset but worse than normal headache and this morning she noticed some word finding difficulties and left hand numbness which have resolved. She declines pain medication for the headache. She is otherwise generally healthy. 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 : None HEENT: None, Glaucoma Psych: None Musculoskeletal: None Derm: None - Past Surgical History Past Surgical History: Yes - Present Medications Home Medications: Ambulatory Orders Medication Instructions Recorded Confirmed hydroCHLOROthiazide 12.5 mg PO DAILY #30 tablet 12/24/18 04/09/23 [Hydrochlorothiazide] Famotidine [Pepcid] 20 mg PO DAILY #30 tablet 06/20/20 04/09/23 Lidocaine Viscous 2% [Xylocaine 5 ml PO Q4H PRN #100 ml 06/20/20 Viscous 2%] Losartan [Cozaar] 50 mg PO DAILY 06/20/20 04/09/23 - Allergies Allergies/Adverse Reactions: Allergies Allergy/AdvReac Type Severity Reaction Status Date / Time dexamethasone [From TobraDex] Allergy Itching Verified 04/09/23 12:56 tobramycin [From TobraDex] Allergy Itching Verified 04/09/23 12:56 - Social History Does the pt smoke?: No Smoking Status: Never smoker Does the pt drink ETOH?: No - Immunizations Immunizations are current?: Yes - POLST Patient has POLST: No POLST Status: Full Code PD ED PE NORMAL - Vitals Vital signs reviewed: Yes - General General: Alert and oriented X 3, No acute distress - HEENT HEENT: PERRL, EOMI - Neck Neck: Supple, no meningeal sign, No bony TTP - Cardiac Cardiac: RRR, No murmur - Respiratory Respiratory: No respiratory distress, Clear bilaterally - Abdomen Abdomen: Non tender - Back Back: No CVA TTP, No spinal TTP - Derm Derm: Normal color, Warm and dry - Neuro Neuro: Alert and oriented X 3, No motor deficit, No sensory deficit, Normal speech, Other (NIH stroke scale is 0 including sensation testing on both hands where her symptoms are.) Eye Opening: Spontaneous Motor: Obeys Commands Verbal: Oriented GCS Score: 15 Results - Vitals Vitals: Vital Signs - 24 hr 04/09/23 04/09/23 04/09/23 12:51 12:56 14:56 Temperature 36.8 C 36.8 C Heart Rate 76 76 60 Respiratory 20 20 16 Rate Blood Pressure 159/90 H 159/90 H 144/66 H O2 Saturation 98 98 100 04/09/23 16:00 Temperature 36.8 C Heart Rate 57 L Respiratory 14 Rate Blood Pressure 110/84 H O2 Saturation 100 Oxygen O2 Source Room air - EKG (time done) 1331 EKG releavant findings:: EKG personally interpreted by author of this note. Relevant findings are: Rate: Rate (enter#) (56) Rhythm: NSR [place]: Normal Intervals: Normal [place] QRS: Normal Ischemia: Normal ST segments 1525 EKG releavant findings:: EKG personally interpreted by author of this note. Relevant findings are: Rate: Rate (enter#) (37) Rhythm: Sinus bradycardia [place]: Normal Intervals: Normal [place] QRS: Normal Ischemia: Normal ST segments - Labs Labs: Laboratory Tests 04/09/23 04/09/23 13:40 13:40 WBC 6.2 RBC 4.78 Hgb 14.0 Hct 42.5 MCV 88.9 MCH 29.3 MCHC 32.9 RDW 13.2 Plt Count 249 MPV 9.2 Neut # (Auto) 3.1 Lymph # (Auto) 2.6 [place] # (Auto) 0.4 Eos # (Auto) 0.0 Baso # (Auto) 0.1 Absolute Nucleated RBC 0.00 Nucleated RBC % 0.0 Sodium 138 Potassium 3.7 Chloride 101 Carbon Dioxide 34 H Anion Gap 3.0 L BUN 14 Creatinine 0.5 L Estimated GFR (MDRD) 125 Glucose 127 H Calcium 10.0 - Rads (name of study) CT angiography of the head and neck was without concerning findings. Relevant Findings:: Final report received, EMP independent interpretation of test CT of the head showing no acute disease, some chronic atrophy and ischemic change Relevant Findings:: Final report received, EMP independent interpretation of test PD Medical Decision Making - ED course ED course: This is a 62-year-old woman who presents with headaches and some left hand numbness with an NIH stroke scale of 0 in the setting of prior aneurysm clipping 16 years ago. CBC and BMP are unremarkable. She was noted to her during her emergency department stay to become bradycardic into the mid 30s. This was asymptomatic and a repeat EKG was done and showed sinus bradycardia. She is not on any rate lowering agents. I do not think that this is relevant to her chief complaint and probably an incidental finding given that she is asymptomatic from the perspective as she has no chest pain, shortness of breath, dizziness, or syncope. As far as the symptoms related to what she came in for differential would be worrisome for stroke or recurrence of vascular disease affecting the brain of which there is no sign of on CT/CTA. Departure - Departure Disposition: 01 Home, Self Care Clinical Impression: Headache Qualifiers: Headache type: unspecified Headache chronicity pattern: acute headache Intractability: not intractable Qualified Code(s): R51.9 - Headache, unspecified Condition: Good Record reviewed to determine appropriate education?: Yes Instructions: ED Cephalgia Unspecified Comments: Regarding the symptoms you came in for, we did his CAT scan and CT angiography of the head both of which were negative for acute findings or any worrisome findings like a recurrence of your prior aneurysm. We did note that you had some episodes of low heart rate here which were asymptomatic. Please mention this to your primary care physician who may wish to order echo and stress. Your heart rate was as low as 35 here. Forms: PCP List
[2023-04-09 13:52] LABS: BASOPHILS # (AUTO) 0.1 10^3/uL (0.0-0.1); BASOPHILS % (AUTO) 0.8 %; EOSINOPHILS % (AUTO) 0.3 %; HCT - HEMATOCRIT 42.5 % (37.0-47.0); LYMPHOCYTES # (AUTO) 2.6 10^3/uL (1.5-3.5); LYMPHOCYTES % (AUTO) 41.6 %; MEAN CORPUSCULAR HEMOGLOBIN 29.3 pg (27.0-31.0); MEAN CORPUSCULAR HGB CONC 32.9 g/dL (32.0-36.0); MEAN CORPUSCULAR VOLUME 88.9 fL (81.0-99.0); MEAN PLATELET VOLUME 9.2 fL (7.9-10.8); MONOCYTES # (AUTO) 0.4 10^3/uL (0.0-1.0); MONOCYTES % (AUTO) 6.3 %; NEUTROPHILS # (AUTO) 3.1 10^3/uL (1.5-6.6); NEUTROPHILS % (AUTO) 50.7 %; PLT - PLATELET COUNT 249 10^3/uL (130-450); RED BLOOD COUNT 4.78 10^6/uL (4.20-5.40); RED CELL DISTRIBUTION WIDTH 13.2 % (12.0-15.0); WHITE BLOOD COUNT 6.2 x10^3/uL (4.8-10.8)
[2023-04-09 14:05] LABS: CREATININE 0.5 mg/dL (0.6-1.3); POTASSIUM 3.7 mmol/L (3.5-4.5)
[2023-04-09 15:24] VITALS: O2SAT 100
[2023-04-09] MEDS ORDERED: iohexoL-300 100 ML VIAL IVP ONE (15:42)
--- NOTE | 2023-04-09 16:13 | CT Report ---
PROCEDURE: HEAD WO INDICATIONS: headache, L hand numb TECHNIQUE: Noncontrast 4.5 mm thick angled axial sections acquired from the foramen magnum to the vertex. For r adiation dose reduction, the following was used: automated exposure control, adjustment of mA and/or kV according to patient size. COMPARISON: 12/24/2018. FINDINGS: Image quality: Excellent. CSF spaces: Basal cisterns are patent. No extra-axial fluid collections. Ventricles are normal in size and shape. Brain: No midline shift. No intracranial masses or hemorrhage. No mass effect. Ritchie-white matter i nterface is normal. There cerebral volume loss for age with resultant ventricular and sulcal prominen ce. There are periventricular and deep white matter chronic small vessel ischemic changes. Atheroscle rotic calcifications are noted in the intracranial segments of the bilateral internal carotid arterie s. Skull and face: Calvarium and visualized facial bones are intact, without suspicious lesions. Stabl e postsurgical changes from suboccipital midline craniotomy. Sinuses: Visualized sinuses and mastoids are clear. IMPRESSION: CT head without acute intracranial abnormalities. Stable age-related senescent changes and sequela of chronic small vessel ischemic disease. Reviewed by: Geraldo Arnold MD on 04/09/2023 4:12 PM PDT Approved by: Geraldo Arnold MD on 04/09/2023 4:12 PM PDT Station ID: [id number]
--- NOTE | 2023-04-09 16:26 | CT Report ---
PROCEDURE: CT Angio Head/Neck INDICATIONS: headache, L hand numb TECHNIQUE: After the administration of intravenous contrast, 1 mm thick sections acquired from the ao rtic arch through the [place]. Post-contrast 4.5 mm thick sections then re-acquired from th e foramen magnum to the vertex. 3-dimensional twevydz-[id number]-vxasozjzdm (MIP) and/or volume rende ring reformats were acquired of the central intracranial vasculature and neck separately. For radiat ion dose reduction, the following was used: automated exposure control, adjustment of mA and/or kV a ccording to patient size. COMPARISON: 12/16/2018 FINDINGS: Image quality: Diagnostic BRAIN: CSF spaces: Ventricles are stable in size and shape. Basal cisterns are patent. No extra-axial fluid collections. Brain: No midline shift. No intracranial masses. No abnormal enhancement noted. Ritchie-white matter interface appears intact. Skull and face: Calvarium and facial bones appear intact, without suspicious lesions. Stable postsur gical changes of the suboccipital midline posterior occiput. Orbits appear normal. Sinuses: Sinuses and mastoids are clear. HEAD CT ANGIOGRAPHY: Anterior circulation: Intracranial internal carotid arteries appear patent without high-grade stenosis. There is flow/opacification within the paired anterior cerebral arteries. There is opacification within the middle cerebral arteries. The anterior communicating artery is seen. No aneurysms are seen. No occlusion. Posterior circulation: Visualized portions of the vertebral arteries are patent and join to form a no rmal appearing basilar artery. No evidence for high-grade stenosis. No occlusions. There is opacification of the posterior cerebral arteries. Redemonstration of previously described origin of the right posterior cerebral artery. No aneurysms are seen. NECK CT ANGIOGRAPHY: Carotid system: The great vessels demonstrate a conventional anatomy as they arise from the aortic a [facility]. The origins of the common carotid arteries appear patent. The common carotid arteries appear patent throughout their visualized courses without high grade sten osis. The bifurcation regions are both patent without high grade stenosis. The internal carotid arteries demonstrate normal calibers and courses. Posterior circulation: The origins of the vertebral arteries both appear patent without hemodynamical ly significant stenosis. The more superior extracranial portions of both vertebral arteries also demonstrate normal courses an d calibers. They join to form a normal appearing basilar artery. Soft tissues: Visualized neck soft tissues demonstrate no suspicious abnormalities. Bones: No suspicious bony lesions. Visualized cervical spine demonstrates straightening of normal cervical lordosis likely related to po sitioning. No acute compression fractures of the vertebral bodies. IMPRESSION: 1. Negative CT angiogram of the head and neck arterial vasculature without hemodynamically significan t stenosis, occlusion, dissection, or aneurysm. Reviewed by: Geraldo Arnold MD on 04/09/2023 4:24 PM PDT Approved by: Geraldo Arnold MD on 04/09/2023 4:24 PM PDT Station ID: [id number]
[2023-04-09 16:47] VITALS: BP 136/69
== END 2023-04-09 16:42 | disposition home or self-care (01) ==
LOC: ED 12:48
DX: R51.9 Headache, unspecified (principal); R47.02 Dysphasia; R20.2 Paresthesia of skin; R00.1 Bradycardia, unspecified; Z86.79 Personal history of other diseases of the circulatory system
CPT/HCPCS: 36415; 70450; 70496; 70498; 80048; 85025; 93005; 99283; 99284; Q9967

== ENCOUNTER 2023-07-23 07:48 | Outpatient (CLI) | payer OTHER | END 2023-07-23 07:49 | disposition home or self-care (01) | LOC: DI 07:48 | PROVIDERS: ATTEND Family Medicine | DX: I10 Essential (primary) hypertension (principal); Z86.79 Personal history of other diseases of the circulatory system | CPT/HCPCS: 93307 ==